=== PATIENT | female | born 1970 | race Caucasian/White ===

== ENCOUNTER 2017-02-06 14:51 | Emergency (ER) | payer MEDICAID ==
[~2017-02-06] VITALS: Ht 162.6 cm; Wt 77.5 kg
[~2017-02-06 14:51] MED LIST: IBUP-1542 PO
[2017-02-06 14:52] VITALS: Ht 162.6 cm; Wt 77.5 kg
[2017-02-06] MEDS ORDERED: KETOROLAC 15 MG INJ IM STA (15:39)
[2017-02-06] MEDS ORDERED: DIAZEPAM 5 MG TAB PO ONE (16:00)
--- NOTE | 2017-02-06 16:17 | ERD ---
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 Patient reports symptoms started yesterday while she was carrying 2 bags of groceries on the bus. Symptoms have not improved with rest. She is taken no medication for symptomatic relief. Patient denies any change in vision, change in speech or behavior, muscular skeletal deficit. Patient denies previous history of neck or back disease. Denies dysuria, shortness of breath, or headache described as the worst headache she has ever felt. Patient is not sure of the exact time symptoms started. Patient denies any change in vision, slurred speech, difficulty with motor function or change in behavior. Patient reports that she has been being monitored for hypertension, blood pressure today is 171 systolic. Patient states that she is been instructed to lose weight and exercise, will have a follow-up appointment in 1 month. Patient currently is on no blood pressure medication. Denies chest pain, shortness of breath, palpitation, or dizziness ROS All systems reviewed and are negative except as per history of present illness. Medications Home Meds Reported Medications Ibuprofen* (Ibuprofen*) 600 Mg Tablet, 600 MG PO Q6 Y 04/29/13 Allergies Allergies: Coded Allergies: No Known Allergy (Verified , 04/29/13) PMhx/Soc Medical and Surgical Hx: pt denies Surgical Hx History of Surgery: No Anesthesia Reaction: No Hx Neurological Disorder: No Hx Respiratory Disorders: No Hx Cardiac Disorders: Yes (HTN, HIGH CHOL) Hx Psychiatric Problems: No Hx Miscellaneous Medical Probl: Yes (chronic back pain) Hx Alcohol Use: No Hx Substance Use: No Hx Tobacco Use: No Smoking Status: Never smoker Physical Exam Vitals Vital Signs Date Time Temp Pulse Resp B/P Pulse Ox O2 Delivery O2 Flow Rate FiO2 02/06/17 14:52 98.0 86 16 171/99 100 Vitals stable, triage notes reviewed Physical Exam Const: Well-appearing, well-hydrated, obese, in no acute distress Head: Atraumatic Eyes: Normal Conjunctiva, PERRLA, EOMI ENT: Normal External Ears, Nose and Mouth. Mucous membranes moist Neck: Full range of motion. With rotation, flexion and extension , lateral bending, patient is decreased rotation to the left, pain with lateral bending to the right. No cervical point tenderness, palpable paraspinal tenderness/spasm on left side. Resp: Respirations even and unlabored, no respiratory distress Cardio: Abd: Abdomen soft, nontender nondistended, negative Foley sign tenderness, negative McBurney's point tenderness but no CVA tenderness Skin: Back Exam: Skin: No bruising or rash Compartments: Soft Motor: Normal flexion and extension of bilateral hip/knee/ ankle/foot, straight leg rises negative bilaterally at 75, no pain with abduction or abduction Sensation: Intact to light touch throughout Bones: No midline TTP Ext: Neuro: M/S: Alert and oriented Face: EOMI, face and pharynx with normal sensation and function Motor: Normal strength throughout Sensation: Normal sensation throughout Speech: Normal Cerebel: Normal coordination Normal gait Normal finger to nose DTR: 2+ and symmetric upper/lower extremities Psych: Normal Mood and Affect Results 24 hrs Current Medications Medications (Trade) Dose Ordered Sig/Chauncey Route PRN Reason Start Time Stop Time Status Last Admin Dose Admin Ketorolac Tromethamine (Toradol) 15 mg ONCE STAT IM 02/06/17 15:39 02/06/17 15:40 DC 02/06/17 15:55 Diazepam (Valium) 5 mg ONCE ONCE PO 02/06/17 16:00 02/06/17 16:01 02/06/17 15:54 Procedures/MDM This 46-year-old female presents to emergency department for 1 day history of left-sided headache, neck pain, with pins and needle sensation running down left arm. Atraumatic pain, acute injury is not suspected. Fracture or subluxation is not suspected. No concern for spinal cord injury or CVA. Patient is neurologically intact no suspicion for Butterfield's palsy or cervical abscess. Patient is treated with Toradol 15 mg intramuscularly and 5 mg Valium while in emergency department discharged home with Naprosyn 500 mg 1 tab p.o. twice daily 10 days, Valium 5 mg 3 times daily as needed 12 tabs given. Patient instructed to take medication as prescribed, rest, ice, follow-up with primary care physician for possible referral to physical therapy, return to emergency department if symptoms fail to respond as anticipated, worsening of symptoms, pain, slurred speech, headache, nausea or vomiting. Change in vision. I feel the patient is stable for discharge at this time. I have discussed results, examination findings, the treatment plan with the patient and family present prior to discharge. Indications for emergent reevaluation, side effects of medication were also discussed. All questions were answered. Patient verbalizes understanding and agrees with plan of care. Departure Diagnosis: Primary Impression: Cervical strain Encounter type: initial encounter Qualified Code: S16.1XXA - Cervical strain , initial encounter Patient Instructions: Neck Pain, No Trauma Additional Instructions: Thank you for for coming to [facility] for your care today. Please ask your nurse or provider if you have questions about your care today and do not leave until all your questions have been answered. Please use any medications given as directed and follow-up with your doctor (or the doctor you were referred to) in the next 2-3 days. If you do not have a primary care doctor you may follow up at the [facility] (listed below). You may also use motrin and tylenol as needed for fever and/or pain unless instructed otherwise by your provider or nurse. Indications for more urgent follow-up have been discussed, but you may return to the Emergency Department at ANY time for any worrisome or worsening symptoms. If you have abdominal pain, please know that no test or exam you received is perfect and you should follow up within 8 hours for continued pain. If you had any imaging studies today, such as an X-Ray or CT Scan, these studies will be reviewed later by a radiologist. You will be called if there are important findings that were not identified today, so make sure the contact information you provided at registration is correct. If you received any narcotic pain control medicine today, such as Vicodin, Morphine or Dilaudid, your coordination and judgment may be affected for a number of hours. Please do not drive or operate heavy machinery, and you may want someone to assist you at home. If you were given a prescription for narcotic medication, be aware that it is very addictive- use sparingly and only if necessary. RON REESE Feb 06, 2017 16:11
[2017-02-06] MEDS ORDERED: NAPR-260 PO (16:18)
[2017-02-06] MEDS ORDERED: DIAZ-90 PO (16:18)
[2017-02-06 16:31] VITALS: BP 134/80; PULSE 59; RESP 16; TEMP 97.9
== END 2017-02-06 16:32 | disposition home or self-care (01) ==
LOC: FTE 14:51
DX: S16.1XXA Strain of muscle, fascia and tendon at neck level, initial encounter (principal); I10 Essential (primary) hypertension; X50.0XXA Overexertion from strenuous movement or load, initial encounter; Y92.9 Unspecified place or not applicable
CPT/HCPCS: 96372; J1885; Z7502; Z7610